=== PATIENT | female | born 1990 | race African-American/Black ===

== ENCOUNTER 2018-09-25 09:28 | Emergency (ER) | payer MEDICAID ==
[~2018-09-25] VITALS: Ht 160 cm; Wt 87.0 kg
[2018-09-25 09:52] VITALS: BP 105/73
== END 2018-09-25 12:21 | disposition left against medical advice (07) ==
LOC: ER 09:28
DX: Z53.21 Procedure and treatment not carried out due to patient leaving prior to being seen by health care provider (principal)